=== PATIENT | female | born 1975 | race Caucasian/White ===

== ENCOUNTER 2020-03-01 12:05 | Emergency (ER) | payer SELFPAY ==
[2020-03-01 12:17] VITALS: BP 149/99
--- NOTE | 2020-03-01 13:10 | ER Document Report ---
ED Medical Screen (RME) - General Chief Complaint: Chest Pain Stated Complaint: CHEST PAIN Time Seen by Provider: 03/01/20 13:07 Mode of Arrival: Ambulatory Information source: Patient Notes: 44-year-old female presents to ED for complaint of chest pain. She states she did get a Covid test today and does not know the results. She states the reason she got the Covid test is her fianc has a possible Covid his test is not resulted yet. She also travels a lot. She states she is not coughing she is not congested she does not have a fever she just has chest pain. She states she does have a history of anxiety and she is not sure if it is anxiety or heart problems. We will get the chest pain work-up done and she will be seen by another provider. I have greeted and performed a rapid initial assessment of this patient. A comprehensive ED assessment and evaluation of the patient, analysis of test results and completion of medical decision making process will be conducted by an additional ED providers. Physical Exam - Vital signs Vitals: Temp Pulse Resp BP Pulse Ox 98.1 F 78 16 149/99 H 100 03/01/20 12:16 03/01/20 12:16 03/01/20 12:16 03/01/20 12:16 03/01/20 12:16 Course - Vital Signs Vital signs: Temp Pulse Resp BP Pulse Ox 98.1 F 78 16 149/99 H 100 03/01/20 12:16 03/01/20 12:16 03/01/20 12:16 03/01/20 12:16 03/01/20 12:16
--- NOTE | 2020-03-01 13:44 | RADIOLOGY REPORT (SQ) ---
EXAM DESCRIPTION: CHEST SINGLE VIEW IMAGES COMPLETED DATE/TIME: 03/01/2020 1:32 pm REASON FOR STUDY: Chest pain COMPARISON: None. EXAM PARAMETERS: NUMBER OF VIEWS: One view. TECHNIQUE: Single frontal radiographic view of the chest acquired. RADIATION DOSE: NA LIMITATIONS: None. FINDINGS: LUNGS AND PLEURA: Small focal asymmetric opacity in the left lung base most likely focal a irspace disease. Lung shine are otherwise clear. No effusions. MEDIASTINUM AND HILAR STRUCTURES: No masses. Contour normal. HEART AND VASCULAR STRUCTURES: Heart normal in size. Normal vasculature. BONES: No acute findings. HARDWARE: None in the chest. OTHER: No other significant finding. IMPRESSION: Focal small asymmetric opacity in the left lung base. Most likely focal atelectasis or pneumonia. TECHNICAL DOCUMENTATION: JOB ID: [id number] 2010 [employer]- All Rights Reserved Reading location - IP/workstation name: [email or web address]
--- NOTE | 2020-03-01 14:09 | EKG REPORT ---
SEVERITY:- BORDERLINE ECG - SINUS RHYTHM PROBABLE LEFT ATRIAL ABNORMALITY : Confirmed by: Roge Cook MD 01-Mar-2020 14:09:03
--- NOTE | 2020-03-01 14:38 | ER Document Report ---
ED General - General Chief Complaint: Anxiety Stated Complaint: CHEST PAIN Time Seen by Provider: 03/01/20 13:07 Mode of Arrival: Ambulatory Information source: Patient Notes: This 44 your woman presents to emerge from when history of anxiety and having some chest tightness. She is not been taking her medication for anxiety. Since she's been under a increased level of stress to the coronavirus and also children at home. Because of her continued complaints of chest discomfort in her insisted that she come to the hospital for evaluation and treatment. The patient states that she knows that this is her anxiety but wanted to get the EKG done for her 's sake. Patient is a she's been here too long and she now wants to go home. - Related Data Allergies/Adverse Reactions: meperidine [From Demerol] Allergy (Verified 03/01/20 13:29) morphine Adverse Reaction (Verified 03/01/20 13:29) Past Medical History - General Information source: Patient - Social History Smoking Status: Current Some Day Smoker Family History: Reviewed & Not Pertinent Patient has homicidal ideation: No Review of Systems - Review of Systems Notes: Constitutional: Negative for fever. HENT: Negative for sore throat. Eyes: Negative for visual changes. Cardiovascular: See HPI Respiratory: Negative for shortness of breath. Gastrointestinal: Negative for abdominal pain, vomiting or diarrhea. Genitourinary: Negative for dysuria. Musculoskeletal: Negative for back pain. Skin: Negative for rash. Neurological: Negative for headaches, weakness or numbness. 10 point ROS negative except as marked above and in HPI. Physical Exam - Vital signs Vitals: Temp Pulse Resp BP Pulse Ox 98.1 F 78 16 149/99 H 100 03/01/20 12:16 03/01/20 12:16 03/01/20 12:16 03/01/20 12:16 03/01/20 12:16 - Notes Notes: PHYSICAL EXAMINATION: Physical Exam: General: Well-nourished well-developed in no acute distress HEENT: NC/AT, pupils equal round and reactive to light, MM moist,nares clear, oropharynx clear, airway patent Neck: supple, no adenopathy, no masses. Good range of motion Lungs: clear, no wheezing, no rales no rhonchi CVS: Regular rate and rhythm no murmur gallop or rub Abdomen: Soft, active, nontender, no masses, no hepatosplenomegaly Ext: No edema, clubbing or cyanosis. Neuro: Alert and responsive, moving all 4 extremities on command, cranial nerves intact, no focal findings Skin: Intact no open lesions, no rash PSYCH: Normal mood, normal affect. Course - Re-evaluation Re-evalutation: Patient is doing well, states she does not want to have blood work drawn, she had an EKG and chest x-ray performed. I explained to the patient this is not a complete evaluation of chest pain, however given her history, I am comfortable in stating that this is not cardiac related and likely related to her anxiety. I have encouraged patient to get back on her anxiety medications as previously prescribed and have expressed to her that she should follow-up with her outpatient physicians. - Vital Signs Vital signs: Temp Pulse Resp BP Pulse Ox 98.1 F 78 16 149/99 H 100 03/01/20 12:16 03/01/20 12:16 03/01/20 12:16 03/01/20 12:16 03/01/20 12:16 - Diagnostic Test Radiology reviewed: Image reviewed, Reports reviewed Radiology results interpreted by me: 03/04/20 06:59 Chest x-ray revealing bibasilar density likely atelectasis, focal left-sided findings atelectasis versus early pneumonia. - EKG Interpretation by Me Rate: Normal - EKG interpreted by Dr. Campos: Normal sinus rhythm, rate72 NE interval 148 ms, QT interval 388 ms,normal axis, probable left atrial abnormality, no acute ST or T wave abnormalities,no ischemic findings, there is no old EKG for comparison.Interpretation sinus rhythm, probable left atrial abnormality Discharge - Discharge Clinical Impression: Non-cardiac chest pain, Anxiety Condition: Good Disposition: HOME, SELF-CARE Instructions: Anxiety ([facility]) Additional Instructions: Your were seen in the emergency department today with chest tightness which you relate to your anxiety. Please continue to take your medications for anxiety as they were previously prescribed. Please follow-up with your primary physician/provider regarding anxiety control. If symptoms are worsening or if you have other concerns you may return to the emergency department for further evaluation and treatment HOME CARE INSTRUCTIONS & INFORMATION: Thank you for choosing us for your medical needs. We hope you're satisfied with the care you received. After you leave, you must properly care for your problem and, at the same time, observe its progress. Any condition can change. Some illnesses can change rapidly over hours or days. If your condition worsens, return to the Emergency Department or see your physician promptly. ABOUT YOUR X-RAYS AND EKG'S: If you had an EKG or X-rays taken, they have been read by the Emergency Physician. The X-rays and EKG's will also be read by a Radiologist or Roller Printing Supervisor within 24 hours. If discrepancies are noted, you will be notified by telephone. Please be certain the ED has a correct telephone number & address where you can be reached. Also, realize that some fractures or abnormalities do not show up on initial X-rays. If your symptoms continue, see your physician. ABOUT YOUR LABORATORY TEST: If you had laboratory tests, the results have been reviewed by the Emergency Physician. Some test results (for example cultures) may not be available for several days. You will be contacted if any test result shows you need additional treatment. Please be certain the ED has a correct telephone number and address where you can be reached. ABOUT YOUR MEDICATIONS: You will receive instructions on how to take your medicine on the prescription label you receive. Additional information may be provided by the Pharmacy. If you have questions afterwards, call the ED for clarification or further instructions. Some prescribed medications may cause drowsiness. Do not perform tasks such as driving a car or operating machinery without consulting your Pharmacist. If you feel you need a refill of pain medication, your condition will need re-evaluation. Please do not call for a refill of any medication. ABOUT YOUR SIGNATURE: Signature of this document acknowledges to followin. Understanding that you received emergency treatment and that you may be released before al medical problems are known or treated. Please be certain the ED has a correct phone number & address where you can be reached. 2. Acknowledgement that you will arrange for follow-up care as recommended. 3. Authorization for the Emergency Physician to provide information to your follow-up Physician in order to maximize your care. AT ANY TIME, IF YOUR SYMPTOMS CHANGE SIGNIFICANTLY OR WORSEN OR YOU DEVELOP NEW SYMPTOMS, RETURN TO THE EMERGENCY DEPARTMENT IMMEDIATELY FOR RE-EVALUATION. OUR GOAL IS TO PROVIDE EXCELLENT MEDICAL CARE! WE HOPE THAT WE HAVE MET YOUR EXPECTATIONS DURING YOUR EMERGENCY DEPARTMENT VISIT AND THAT YOU FEEL YOU HAVE RECEIVED EXCELLENT CARE!
== END 2020-03-01 14:42 | disposition home or self-care (01) ==
LOC: ER 12:05
DX: R07.89 Other chest pain (principal); F41.9 Anxiety disorder, unspecified; F17.200 Nicotine dependence, unspecified, uncomplicated
CPT/HCPCS: 71045; 93005; 93010; 99284

== ENCOUNTER 2020-03-29 06:04 | Emergency (ER) | payer MEDICARE ==
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
[2020-03-29] MEDS ORDERED: ACETAMINOPHEN 325 MG TABLET PO ONE (09:35)
[2020-03-29] MEDS ORDERED: PROMETHAZINE HCL INJ 25 MG/1 ML VIAL IM ONE (09:36)
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
[2020-03-29 10:54] VITALS: BP 128/85
== END 2020-03-29 10:50 | disposition home or self-care (01) ==
LOC: ER 06:04
DX: S83.92XA Sprain of unspecified site of left knee, initial encounter (principal); M62.838 Other muscle spasm; V49.50XA Passenger injured in collision with unspecified motor vehicles in traffic accident, initial encounter
CPT/HCPCS: 99284; 96372; 72040; 73560; A9270; J2550